=== PATIENT | female | born 1965 | race Caucasian/White ===

== ENCOUNTER 2020-02-07 13:24 | Outpatient (CLI) | payer OTHER, SELFPAY ==
--- NOTE | ~2020-02-07 | XR_ITS ---
XR chest 2V DATE: 02/07/2020 13:37 INDICATION: Right-sided chest pain. Shortness of breath. TECHNIQUE: PA and lateral views COMPARISON: None FINDINGS: Normal heart size. No hilar or mediastinal enlargement. No pulmonary infiltrate or consolid ation, pleural effusion or pulmonary vascular congestion or pneumothorax. Included skeletal structures are unremarkable. Status post cholecystectomy. IMPRESSION: No active cardiopulmonary disease Reviewed, dictated and finalized at location J.
== END 2020-02-07 13:25 | disposition home or self-care (01) ==
LOC: CHSIMG 13:27
PROVIDERS: PCP Nurse Practitioner Family; Visit Provider Nurse Practitioner Family
DX: R06.02 Shortness of breath (principal)
CPT/HCPCS: 71046

== ENCOUNTER → 2022-09-10 10:55 | Outpatient (CLI) | payer OTHER, SELFPAY ==
--- NOTE | ~2022-09-10 | XR_ITS ---
XR thoracic spine 2V DATE: 09/10/2022 11:20 INDICATION: Neck and mid back pain for 3 weeks. No injury. TECHNIQUE: AP, lateral views COMPARISON: 09/10/2022 AP and lateral cervical spine FINDINGS: No fracture or dislocation or bone destruction. The thoracic pedicles are intact. No parasp inal soft tissue thickening. Status post cholecystectomy. IMPRESSION: No significant abnormality of the thoracic spine Reviewed, dictated and finalized at location A.
--- NOTE | ~2022-09-10 | XR_ITS ---
XR_[id number]_CR DATE: 09/10/2022 11:20 INDICATION: Neck and mid back pain for 3 weeks. No injury. TECHNIQUE: AP and lateral views COMPARISON: None FINDINGS: There is straightening of the cervical spine. C1 and C2 appear normally aligned and the odontoid process appears intact. Minimal anterolisthesis at C2-3. Mild anterolisthesis at C4-5. Moderately severe degenerative disc disease and prominent uncovertebral joint spurring at C5-6. IMPRESSION: Straightening Minimal anterolisthesis at C2-3 and mild anterolisthesis at C4-5 Moderately severe degenerative disc disease and prominent uncovertebral joint spurring at C5-6 Reviewed, dictated and finalized at Location A. Reviewed, dictated and finalized at location A. IMPRESSION: Straightening Minimal anterolisthesis at C2-3 and mild anterolisthesis at C4-5 Moderately severe degenerative disc disease and prominent uncovertebral joint s purring at C5-6
== END ==
DX: M54.6 Pain in thoracic spine (principal); M50.30 Other cervical disc degeneration, unspecified cervical region
CPT/HCPCS: 72040; 72070